=== PATIENT | female | born 1960 | race Two or more races ===

== ENCOUNTER 2019-04-17 07:24 | Day surgery (SDC) | payer MEDICARE, OTHER ==
[2019-04-17] VITALS (12 sets, daily range): BP systolic 85–111; BP diastolic 44–74
[~2019-04-17] VITALS: Ht 160 cm; Wt 66.7 kg
[~2019-04-17 07:24] MED LIST: ceFAZolin sod 1 GM in NS 55 ML IVPB ONE
[2019-04-17] MEDS ORDERED: Bacitracin 50000 Units Vial ONE (07:49)
[2019-04-17] MEDS ORDERED: NeoSporin Gu Irrig 1ml Amp IRRIG ONE (07:49)
[2019-04-17] MEDS ORDERED: ProvayBlue 5mg/ml 10ml amp INJ ONE (08:00)
[2019-04-17] MEDS: Sulfanilamide 15% Cream - 78gm VAGIN ONE ×2 (08:00→10:20)
[2019-04-17] MEDS ORDERED: IBUPROFEN600 MG ORAL (08:06)
[2019-04-17] MEDS ORDERED: LYRICA25 MG ORAL (08:06)
[2019-04-17] MEDS ORDERED: VITAMIN D400 INTLU ORAL (08:06)
[2019-04-17] MEDS ORDERED: CRESTOR20 MG ORAL (08:06)
[2019-04-17] MEDS ORDERED: ESTRADIOL1 EAC5 TD (08:06)
[2019-04-17] MEDS ORDERED: OYSTER SHELL C500 MG PO (08:06)
[2019-04-17] MEDS ORDERED: METFORMIN HCL500 M1 ORAL (08:06)
[2019-04-17] MEDS ORDERED: OXYBUTYNIN CHLO10 MG PO (08:08)
[2019-04-17] MEDS ORDERED: METHENAMINE PO (08:08)
[2019-04-17] MEDS ORDERED: LR 1000ml 1,000 ML IVLG SCH (09:36)
[2019-04-17] MEDS ORDERED: Zemuron 50mg/5ml Inj IV ONE (09:38)
[2019-04-17] MEDS ORDERED: oxyCODONE HCL/Acetaminophen 5/325mg ORAL PRN (09:45)
[2019-04-17] MEDS ORDERED: DiphenhydrAMINE 50mg/ml Inj IVP PRN (09:45)
[2019-04-17] MEDS ORDERED: Ketorolac 30mg Inj IV PRN ×2 (09:45)
[2019-04-17] MEDS ORDERED: HYDROcodone/Acetamin 7.5/325 tab ORAL PRN (09:45)
[2019-04-17] MEDS ORDERED: Meperidine 50mg/ml Inj(FOR RIGORS ONLY) IVP PRN (09:45)
[2019-04-17] MEDS ORDERED: Acetaminophen (Non formulary) 100 ML IV ONE (09:45)
[2019-04-17] MEDS ORDERED: fentaNYL 100 mcg/2 mL IV PRN (09:45)
[2019-04-17] MEDS ORDERED: Atropine Sulfate 0.4mg/ml inj IVP PRN (09:45)
[2019-04-17] MEDS ORDERED: Labetalol 5mg/ml 20ml vial IV PRN (09:45)
[2019-04-17] MEDS ORDERED: LORazepam Inj 2mg/ml 1ml IV PRN (09:45)
[2019-04-17] MEDS ORDERED: HYDROcodone/Acetamin 5/325 tab ORAL PRN ×2 (09:45→13:30)
[2019-04-17] MEDS ORDERED: Metoclopramide 10mg/2ml Inj IVP PRN (09:45)
[2019-04-17] MEDS ORDERED: Hydromorphone 0.5mg/0.5ml inj IVP PRN (09:45)
[2019-04-17] MEDS ORDERED: Midazolam 2mg/2ml Inj IVP PRN (09:45)
[2019-04-17] MEDS ORDERED: Dexamethasone 4mg/ml vial ONE (09:46)
[2019-04-17] MEDS ORDERED: Sodium Chloride 10ml vial INJ ONE (09:46)
[2019-04-17] MEDS ORDERED: Lidocaine 1% MPF 10mg/ml 5ml ONE (09:46)
[2019-04-17] MEDS ORDERED: fentaNYL 100 mcg/2 mL IV ONE (09:47)
[2019-04-17] MEDS ORDERED: Lidocaine 1% Plain 30 ml INJ ONE (09:47)
--- NOTE | 2019-04-17 09:56 | Pre-Procedure Note/Attestation ---
Pre-Procedure Note/Attestation Complete Prior to Procedure Planned Procedure: not applicable Procedure Narrative: vaginal prolapse Indications for Procedure Pre-Operative Diagnosis: cystocele repair rectocele repair vaginal sling cystoscopy Attestation I attest that I discussed the nature of the procedure; its benefits; risks and complications; and alternatives (and the risks and benefits of such alternatives ), prior to the procedure, with the patient (or the patient's legal provider relations representative). I attest that, if there was a reasonable possibility of needing a blood transfusion, the patient (or the patient's legal provider relations representative) was given the [facility] standardized written summary, pursuant to the [place] Blood Safety Act ([place] Health and Safety Code # 1645, as amended). I attest that I re-evaluated the patient just prior to the surgery and that there has been no change in the patient's H&P, except as documented below: Anthony Chris MD Apr 17, 2019 09:56
[2019-04-17] MEDS ORDERED: LR 1000ml ONE (10:00)
[2019-04-17] MEDS ORDERED: Propofol 200mg/20ml IV ONE (10:00)
[2019-04-17] MEDS ORDERED: Sterile Water For Irrig 2000ml IRRIG ONE ×2 (10:20→11:04)
--- NOTE | 2019-04-17 10:22 | Anethesia Preoperative Eval ---
Anesthesia Pre-op PMH/ROS General Date of Evaluation: Apr 17, 2019 Time of Evaluation: 09:41 Anesthesiologist: Tommy ASA Score: ASA 3 Mallampati Score Class I : Soft palate, uvula, fauces, pillars visible Class II: Soft palate, uvula, fauces visible Class III: Soft palate, base of uvula visible Class IV: Only hard plate visible Mallampati Classification: Class II Surgeon: Aries Diagnosis: Uterine Prolapse Surgical Procedure: Vaginal Sling, Rectocele, Cystocele Repair,Cystocopy Anesthesia History: none Family History: no anesthesia problems Allergies: Coded Allergies: No Known Allergies (Unverified , 04/17/19) Medications: see eMAR Patient NPO?: Yes NPO Date: Apr 16, 2019 NPO Time: 2100 Past Medical History Cardiovascular: Reports: HTN, other - HL Endocrine: Reports: DM PSxH Narrative: Appendectomy, Fibroids Anesthesia Pre-op Phys. Exam Physician Exam Last Vital Signs Date Time Temp Pulse Resp B/P (MAP) Pulse Ox O2 Delivery O2 Flow Rate FiO2 04/17/19 07:52 Room Air 04/17/19 07:51 97.6 64 16 111/74 (86) 100 Constitutional: NAD Neurologic: CN 2-12 intact Cardiovascular: RRR Respiratory: CTA Gastrointestinal: S/NT/ND Airway Exam Mallampati Score: Class II MO: full ROM: limited Teeth: intact Anesthesia Pre-op A/P Risk Assessment & Plan Assessment: ASA 3 Plan: GA Status Change Before Surgery: No Pre-Antibiotics DruGram Ancef IV Given Within 1 Hr of Incision: Yes Time Given: 09:56 Stevenson Vela MD Apr 17, 2019 10:22
--- NOTE | 2019-04-17 10:25 | Immediate Post-Op Evaluation ---
Immediate Post-Op Evalulation Immediate Post-Op Evalulation Procedure: Vaginal Sling, Rectocele, Cystocele Repair,Cystocopy Date of Evaluation: Apr 17, 2019 Time of Evaluation: 11:45 IV Fluids: 700 LR Blood Products: 0 Estimated Blood Loss: 40 Urinary Output: 0 Blood Pressure Systolic: 86 Blood Pressure Diastolic: 44 Pulse Rate: 55 Respiratory Rate: 16 O2 Sat by Pulse Oximetry: 100 Temperature (Fahrenheit): 97.5 Pain Score (1-10): 2 Nausea: No Vomiting: No Complications 0 Patient Status: awake, reacts, patent, extubated, none Hydration Status: adequate Dru Gram Ancef IV Given Within 1 Hr of Incision: Yes Time Given: 09:51 Stevenson Vela MD Apr 17, 2019 10:25
--- NOTE | 2019-04-17 10:25 | 48 Hour Post Anesthesia Eval ---
Post Anesthesia Evaluation Procedure: Vaginal Sling, Rectocele, Cystocele Repair,Cystocopy Date of Evaluation: Apr 17, 2019 Time of Evaluation: 13:54 Blood Pressure Systolic: 112 0: 78 Pulse Rate: 72 Respiratory Rate: 18 Temperature (Fahrenheit): 98.2 O2 Sat by Pulse Oximetry: 99 Airway: patent Nausea: No Vomiting: No Pain Intensity: 2 Hydration Status: adequate Cardiopulmonary Status: Stable Mental Status/LOC: patient returned to baseline Follow-up Care/Observations: 0 Post-Anesthesia Complications: 0 Follow-up care needed: ready to discharge Stevenson Vela MD Apr 17, 2019 10:25
[2019-04-17] MEDS ORDERED: Neostigmine 1mg/ml 10ml Inj ONE (11:08)
[2019-04-17] MEDS ORDERED: Glycopyrrolate 0.2mg/ml 1ml Vial ONE (11:08)
[2019-04-17] MEDS ORDERED: Ketorolac 30mg Inj ONE (11:12)
--- NOTE | 2019-04-17 11:16 | NUR ---
CASE MANAGEMENT:REVIEW 58 YR OLD FEMALE HERE FOR ELECTIVE SURGERY SI: CYSTOCELE/RECTOCELE 97.6 64 16 111/74 100% ON RA IS: TO SURGERY FOR: CYSTOCELE AND RECTOCELE REPAIR VAGINAL SLING AND CYSTOSCOPY : CURRENTLY IN SURGERY INTERQUAL CRITERIA MET
--- NOTE | 2019-04-17 12:02 | Brief Operative Note ---
Immediate Post Operative Note Operative Note Pre-op Diagnosis: cystocele repair rectocele repair vaginal sling cystoscopy Procedure: cystocele repair rectocele repair vaginal sling cystoscopy Post-op Diagnosis: same Surgeon: Ochoa Chris Anesthesia: general Specimen: none Complications: none Condition: stable Fluids: 500 Estimated Blood Loss: minimal Drains: none Implant(s) used?: No Anthony Chris MD Apr 17, 2019 12:02
[2019-04-17 13:01] LABS: BASOPHILS % (AUTO) 0.4 % (0.0-2.0); EOSINOPHILS % (AUTO) 0.2 % (0.0-3.0); HEMATOCRIT 34.7 % (37.0-47.0); HEMOGLOBIN 11.4 G/DL (12.0-16.0); LYMPHOCYTES % (AUTO) 12.5 % (20.0-45.0); MEAN CORPUSCULAR VOLUME 92 FL (80-99); NEUTROPHILS % (AUTO) 84.9 % (45.0-75.0); PLATELET COUNT 264 K/UL (150-450); RED BLOOD COUNT 3.78 M/UL (4.20-5.40); RED CELL DISTRIBUTION WIDTH 11.7 % (11.6-14.8); WHITE BLOOD COUNT 6.5 K/UL (4.8-10.8)
[2019-04-17 13:04] LABS: ANION GAP 6 mmol/L (5-15); BLOOD UREA NITROGEN 17 mg/dL (7-18); CALCIUM 8.3 MG/DL (8.5-10.1); CARBON DIOXIDE 26 MMOL/L (21-32); CHLORIDE 109 MMOL/L (98-107); CREATININE 0.7 MG/DL (0.55-1.30); POTASSIUM 4.3 MMOL/L (3.5-5.1); SODIUM 141 MMOL/L (136-145)
--- NOTE | 2019-04-17 13:10 | NUR ---
NURSE NOTES: Pt received from procedure Report given by Emperatriz. Pt awake but drowsy, at bedside. Well be monitored for pain and possible bleeding. Has vaginal packing to be removed tomorrow. Per Dr Wanda keys not to be d/c
[2019-04-17] MEDS ORDERED: HYDROmorphone 1mg/ml Carpuject IVP PRN (13:30)
--- NOTE | 2019-04-17 14:01 | NUR ---
NURSE NOTES: NURSE NOTES: fluids are not available yet
[2019-04-17] MEDS: D5 1/2NS w/KCl 20mEq 1,000 ML IV SCH (14:43)
--- NOTE | 2019-04-17 15:08 | NUR ---
NURSE NOTES: Fluids given pt requested that scd be removed requesting if she can stand at bedside. Reminded about keys catheter, and not moving to far or to remove bag from bed with assistance. Call light is in reach. No presence of blood on peripad. feels sensation on bilateral feet. Pt requesting if she can go home procedure explained need for monitoring explained, verbalized understanding. Breathing is stable, continues on NC, IV remains patent no signs of infiltration
--- NOTE | 2019-04-17 15:22 | NUR ---
NURSE NOTES: Medication reviewed with pt, stated that they were correct refused Flu vaccine. Benefits explained . will follow up with Dr Muñoz for consult with internal medicine
[2019-04-17] MEDS: Docusate 100mg cap ORAL SCH (18:00)
[2019-04-17] MEDS: ceFAZolin sod 2 GM in D5W 110 ML IV SCH (18:00)
--- NOTE | 2019-04-17 19:54 | NUR ---
HAND-OFF: Report given to Glenna ALVARADO.
--- NOTE | 2019-04-17 19:55 | NUR ---
NURSE NOTES: Pt has no complaints of pain at this time. Incentive spirometer is at bedside. IV patent. Haily Pad Clean, no bleeding. Output 900 , . daughter brought her food 100 meal intake denies nausea vomiting
--- NOTE | 2019-04-17 20:00 | NUR ---
NURSE NOTES: Patient received in bed, awake alert, No acute distress at this time. IVF infusing as ordered on right hand, no signs of infiltration. Greco catheter draining greenish urine via gravity. Catheter secured to thigh. Call light and personal belongings in reach. Will monitor.
[2019-04-18] MEDS: D5 1/2NS w/KCl 20mEq 1,000 ML IV SCH ×2 (00:06→10:30)
[2019-04-18] MEDS: ceFAZolin sod 2 GM in D5W 110 ML IV SCH (01:34)
[2019-04-18 04:00] VITALS: BP 108/55
[2019-04-18 06:42] LABS: BASOPHILS % (AUTO) 0.2 % (0.0-2.0); EOSINOPHILS % (AUTO) 0.1 % (0.0-3.0); HEMATOCRIT 32.2 % (37.0-47.0); HEMOGLOBIN 10.9 G/DL (12.0-16.0); LYMPHOCYTES % (AUTO) 11.2 % (20.0-45.0); MEAN CORPUSCULAR VOLUME 91 FL (80-99); MONOCYTES % (AUTO) 7.1 % (1.0-10.0); NEUTROPHILS % (AUTO) 81.4 % (45.0-75.0); PLATELET COUNT 249 K/UL (150-450); RED BLOOD COUNT 3.53 M/UL (4.20-5.40); RED CELL DISTRIBUTION WIDTH 11.9 % (11.6-14.8); WHITE BLOOD COUNT 11.8 K/UL (4.8-10.8)
[2019-04-18 06:43] LABS: ANION GAP 6 mmol/L (5-15); BLOOD UREA NITROGEN 13 mg/dL (7-18); CALCIUM 8.4 MG/DL (8.5-10.1); CARBON DIOXIDE 27 MMOL/L (21-32); CHLORIDE 108 MMOL/L (98-107); CREATININE 0.6 MG/DL (0.55-1.30); SODIUM 141 MMOL/L (136-145)
--- NOTE | 2019-04-18 07:24 | NUR ---
NURSE NOTES: Dr Randle here to see the pt. Pt received sleeping. Per report of outgoing nurse small amount of blood was on peripad. Pt breathing room air with no complaints of pain . Call light is in reach.
--- NOTE | 2019-04-18 07:24 | NUR ---
HAND-OFF: Report given to Ninfa ALVARADO.
--- NOTE | 2019-04-18 07:29 | NUR ---
NURSE NOTES: Correction Dr here is Néstor harkins pt
[2019-04-18 08:00] VITALS: BP 90/49
[2019-04-18] MEDS: Docusate 100mg cap ORAL SCH (08:21)
--- NOTE | 2019-04-18 08:37 | NUR ---
P.T Note: P.T EVALUATION. PATIENT IS ALERT, PLEASANT AND COOPERATIVE. PATIENT PRESENTED VAGINAL DISCOMFORT AGGRAVATED BY TRANSITIONAL MOVEMENTS HOWEVER ABLE TO PERFORM FUNCTIONAL MOBILITY TASKS INDEPENDENTLY AND SAFELY PROVIDED WITH EXTENDED TIME ON SIT TO/FROM TRANSITIONS. PATIENT EDUCATED ON STRATEGIC COMPENSATORY MOVEMENTS BY ENGAGING THE CORE AND PELVIC F[employer]OR [employer]CLE GROUP TO MINIMIZE PAIN AND DISCOMFORT WITH MOBILITY WITH GOOD RETURN DEMONSTRATION. PATIENT ALSO ENCOURAGE TO AMBULATE TOLERATED TO PREVENT DECONDITIONING EFFECT OF HOSPITAL . PATIENT IS FUNCTIONING AT BASELINE THEREFORE SKILLED P.T SERVICE IS NOT NEEDED AT THIS TIME.
[2019-04-18] MEDS ORDERED: Levofloxacin 500mg tab ORAL SCH (09:00)
--- NOTE | 2019-04-18 09:42 | NUR ---
NURSE NOTES: Pt up and walking went to the restroom . Pt had a BM Greco is still in place. Attempted to remove packing pt fearful and clenching vagina. Pt encouraged to walk to facilitate removal. After walking packing was visible. Sanguinous but not saturated . Pt experienced some discomfort but refused pain medication . Pt is pleasant and desires to go. Inform that Dr Balwinder Chris will be here to see pt. Pt refused scd
--- NOTE | 2019-04-18 09:51 | NUR ---
NURSE NOTES: Dr Mcmanus here to see pt he phoned Dr Chris to inquire on discharge.
[2019-04-18] MEDS ORDERED: LEVAQUIN500 MG ORAL (09:57)
[2019-04-18] MEDS ORDERED: COLACE100 MG ORAL (09:57)
[2019-04-18] MEDS ORDERED: NORCO 5-325 TA1 EACH ORAL (09:57)
[2019-04-18 12:00] VITALS: BP 99/61
--- NOTE | 2019-04-18 13:30 | NUR ---
NURSE NOTES: Pt discharge home with prescriptions. Stated she will fill her prescriptions at her personal pharmacy. Pt concerned about being discharged home with Greco catheter , educated on care of catheter, how to attach straps to leg, and how to empty catheter bag. Charge Nurse in room with specifications writer, per request of pt to translate her concerns in in French. Pt to be seen on Monday by Dr. Hunter. Phone number in packet. Dr Chris nurse will be visiting pt at home for further teaching. IV removed, Discharge packet provided , to include frequently asked questions after surgery DM and Food, bladder prolapse. 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 Escorted down stairs by [employer] BATTERY TECHNICIAN. Condition stable.
--- NOTE | 2019-04-18 17:00 | Consultation ---
DATE OF CONSULTATION: 04/18/2019 INTERNAL MEDICINE CONSULTATION: CONSULTING PHYSICIAN: Miguel Mcmanus M.D. HISTORY OF PRESENT ILLNESS: This is a very pleasant 58-year-old female, who has undergone surgery by Dr. Anthony Chris yesterday. This consisted of a cystocele repair, vaginal sling, and cystoscopy. She had approximately minimal blood loss. She is doing well at this point in time. PAST HISTORY: Completely unremarkable with no active medical issues. ALLERGIES: None. PREVIOUS SURGERIES: None. REVIEW OF SYSTEMS: Denies any headaches, hematemesis, melena, or hematochezia. PHYSICAL EXAMINATION: GENERAL: Reveals a young female. HEENT: Unremarkable. LUNGS: Clear breath sounds bilaterally. ABDOMEN: Soft. NEUROLOGIC: Nonfocal. LABORATORY TESTING: Preoperatively is unremarkable. IMPRESSION: , status post cystoscopy and repair of rectocele. DISCUSSION: Discharge home with Greco in place. We will prescribe [place], Levaquin, and Colace. Outpatient follow up with Dr. Chris. Discussed with the patient and bedside nurse. Miguel Mcmanus M.D. DR: XANDER JOB#: [id number] CC:
--- NOTE | 2019-04-19 02:45 | Operative Note - Dictated ---
DATE OF OPERATION: 04/18/2019 PREOPERATIVE DIAGNOSES: Vaginal prolapse, stress and urge incontinence. POSTOPERATIVE DIAGNOSES: Vaginal prolapse, stress and urge incontinence. OPERATIONS: Transvaginal cystocele repair, rectocele repair, vaginal wall sling, colposuspension, and cystoscopy. OPERATED BY: Anthony Chris M.D. ANESTHESIA: General. FINDINGS: Prolapsed vagina. INDICATIONS FOR SURGERY: The patient has a longstanding vaginal prolapse with a cystocele, rectocele, stress and urge incontinence. She was evaluated in the office with vaginal exams, urodynamics, and the ultrasounds, which confirmed grade 4 cystocele. Treatment options were explained to her in great length including all potential complications. She understands the nature of her problems and signed a consent. DESCRIPTION OF PROCEDURE: She was brought to the operating room, placed in lithotomy position and prepped and draped in standard fashion. Under general anesthesia, [place] retractor was placed. Vagina was retracted. Bladder was approached and injected with 2% Marcaine with epinephrine and then incised in goalpost fashion in the mid vagina. Bladder was from vaginal wall and retrovesical space was entered revealing sacrospinal ligaments. Using a special device, suture was placed in the sacrospinal ligament and secured to the vaginal wall. After we performed cystocele repair, interrupted [id number] sutures removed repairing central defect. Vagina was constrained and colposuspended using sutures. A goalpost was made by [employer] to elevate anterior vagina, which was very successful. Vagina then was closed with 2-0 Vicryl. Rectocele was repaired in a standard fashion, reapproximated to perirectal facia, and vaginal space was closed. Vagina was packed with iodine paper. Cystoscopy was normal showing ejection coming from both ureteral orifices. Estimated blood loss was approximately 20 mL. The patient tolerated the procedure well. Sponge count and instrument count were correct. Anthony Chris M.D. DR: Torres JOB#: [id number] CC:
--- NOTE | 2019-04-19 06:03 | Discharge Summary ---
Discharge Summary Discharge Summary _ DATE OF ADMISSION: 04/17/2019 DATE OF DISCHARGE: 04/18/2019 DISCHARGED BY: Dr. Daksha Mcmanus SURGEON: Dr. Anthony Chris BRIEF HOSPITAL COURSE: Patient is a 58-year-old female, with long-standing vaginal prolapse with cystocele, rectocele, stress and urge incontinence. She was evaluated as outpatient with vaginal exams, urodynamics and ultrasound, which confirmed grade 4 cystocele. Treatment options were explained, and patient consented for surgical repair. She was admitted on 04/18/2020 119 and underwent transvaginal cystocele repair, rectocele repair, vaginal sling cystoscopy. She tolerated procedure well. She was admitted for postop care. She was given pain management and IV hydration. Diet was advanced. Urine output was monitored. She was given stool softeners. WBC went up to 11.8. Patient was afebrile. She was given Levofloxacin. Vaginal packing was removed the following day. She was given PT mobility. She was given education on Greco catheter care. She was given leg bag. She was mobilizing well. She had good pain control. She was eventually discharged home. To follow-up with urologist as outpatient. PREOPERATIVE DIAGNOSES: Vaginal prolapse, stress and urge incontinence. POSTOPERATIVE DIAGNOSES: Vaginal prolapse, stress and urge incontinence. OPERATIONS: Transvaginal cystocele repair, rectocele repair, vaginal wall sling, colposuspension, and cystoscopy. (Refer to operative report) DISPOSITION: Patient was discharged home. DISCHARGE MEDICATIONS: Refer to Discharge Medication List. DISCHARGE INSTRUCTIONS: Follow-up in a week. I have been assigned to complete a discharge summary on this account, I was not involved with the patient's management. Kassandra Garcia NP Apr 19, 2019 06:03
== END 2019-04-18 13:20 | disposition home or self-care (01) ==
LOC: SDSOVERFLO 07:24 → SUR 07:24 → UNDOADMIN 07:24 → EDSTATUS 07:30 → 3E 13:04 → SDSOVERFLO 13:04 → SUR 04-18 13:20 → UNDODISIN 04-18 13:20
DX: N81.4 Uterovaginal prolapse, unspecified (principal); N81.6 Rectocele; N39.46 Mixed incontinence; I10 Essential (primary) hypertension; E11.9 Type 2 diabetes mellitus without complications; Z90.89 Acquired absence of other organs
CPT/HCPCS: 36415; 57260; 80048; 82962; 85025; 87081; C1771; J0690; J1100; J1885; J2001; J2250; J2405; J2704; J2710; J3010; Q9968; 94003; 94150